=== PATIENT | female | born 1970 | race Caucasian/White ===

== ENCOUNTER → 2019-06-17 | Outpatient (CLI) | payer OTHER ==
--- NOTE | 2019-06-18 19:59 | SLEEP ---
DATE OF STUDY: 06/17/2019 HOME SLEEP STUDY REFERRING PHYSICIAN: Dr. Vic Hall. The patient is 48-year-old who weighs 180 pounds with a BMI of 34. The patient's Garrett score was 8. The patient underwent home sleep study performed at [facility]. Total recording time was 548 minutes. During the night study, the patient had 4 central apneas, 2 obstructive and 17 mixed apneas and 13 hypopneas. The patient's apnea hypopnea index was 3.9 per hour. The patient had signs of upper airway resistance syndrome throughout the test. Nocturnal oximetry study revealed a mean oxygen saturation of 95% with lowest of 83%. 0.8 minutes were spent in oxygen saturation less than 90%. Mean heart rate was 70 beats per minute. IMPRESSION: 1. No clinically significant sleep disorder breathing. The patient's apnea-hypopnea index for the entire night was 3.9 per hour. The patient did have signs of upper airway resistance syndrome throughout the test. 2. No clinically significant nocturnal hypoxia. RECOMMENDATIONS: 1. The patient does not meet the split night criteria for CPAP initiation. 2. If clinical suspicion for sleep apnea is still high, then consider doing in-lab diagnostic polysomnogram. 3. Weight loss to the ideal body weight is recommended. 4. Avoid [employer] depressants. LIZZETTE LANCASTER MD DR: JERONIMO/kin JOB#: [id number] / [id number] VIC Campbell MD
== END | disposition home or self-care (01) ==
LOC: RT 09:55
PROVIDERS: ATTEND Family Medicine
DX: G47.33 Obstructive sleep apnea (adult) (pediatric) (principal)
CPT/HCPCS: G0399

== ENCOUNTER → 2019-07-29 | Day surgery (SDC) | payer OTHER ==
[~2019-07-29] MED LIST: DARI15TA3 PO; FLUO40CA2 PO; HYDROmorphone 2 MG/ML VIAL IV PRN; IV RINGERS,LACTATED 1000ML 1,000 ML IV SCH; LIDOCAINE 2% PF 5 ML VIAL. ONE; MORPHINE SULFATE 2 MG/ML VIAL. IV PRN; ONDANSETRON PF 4 MG/2 ML VIAL. IV PRN; PROCHLORPERAZINE 10 MG/2 ML VIAL. IV PRN; PROPOFOL 40 ML IV ONE; fentaNYL PF VIAL 100 MCG/2 ML VIAL IV PRN
[2019-07-29 08:27] VITALS: BP 149/80
== END ==
LOC: ENDOS 06:38
PROVIDERS: ATTEND Internal Medicine Gastroenterology
DX: R13.10 Dysphagia, unspecified (principal); K22.2 Esophageal obstruction; K21.9 Gastro-esophageal reflux disease without esophagitis; F41.9 Anxiety disorder, unspecified; F32.9 Major depressive disorder, single episode, unspecified; F15.90 Other stimulant use, unspecified, uncomplicated; Z72.89 Other problems related to lifestyle; Z72.0 Tobacco use
CPT/HCPCS: 43235; 43450; 81025; J2001; J2704